=== PATIENT | female | born 1940 | race Asian ===

== ENCOUNTER 2017-04-04 15:23 | Inpatient (IN) | payer MEDICARE, OTHER ==
[~2017-04-04] VITALS: Ht 157.5 cm; Wt 57.6 kg
[2017-04-04] VITALS (8 sets, daily range): BP systolic 115–159; BP diastolic 59–83
--- NOTE | 2017-04-04 16:09 | Emergency Room Report ---
History of Present Illness General Chief Complaint: Abdominal Pain Source: Patient Present Illness HPI [id number] walk-in, sent from Dr Marino's office for generalized abd pain, generalized with dizziness for 2 weeks. Denies nausea/vomiting, fever/chills, urinary complaints ?abnormal labs. Dr Mckay says "elevated CA" marker 199 Denies other medical problems, medications Allergies: Coded Allergies: ASPIRIN (Verified Allergy, Unknown, 04/04/17) Patient History Past Medical History: none Past Surgical History: none Pertinent Family History: none Social History: Denies: smoking, alcohol use, drug use Now: No Immunizations: UTD Reviewed Nursing Documentation: PMH: Agreed, PSxH: Agreed Review of Systems All Other Systems: negative except mentioned in HPI Physical Exam Vital Signs Date Time Temp Pulse Resp B/P (MAP) Pulse Ox O2 Delivery O2 Flow Rate FiO2 04/04/17 15:51 98.1 78 16 184/77 97 Room Air Sp02 EP Interpretation: reviewed, normal General Appearance: normal inspection, well appearing, no apparent distress, alert Head: atraumatic ENT: normal ENT inspection, hearing grossly normal, normal voice Neck: normal inspection, full range of motion, supple, no bony tend Respiratory: normal inspection, lungs clear, normal breath sounds, no respiratory distress, no retraction, no wheezing Cardiovascular #1: regular rate, rhythm, no edema Gastrointestinal: normal inspection, normal bowel sounds, soft, no guarding, no hernia, other - Generalized ttp. No peritonitis. Genitourinary: no CVA tenderness Musculoskeletal: normal inspection, back normal, normal range of motion, Twyla' s Sign negative Neurologic: normal inspection, alert, oriented x3, responsive, aviation ordnance officer III-XII nml as tested, motor strength/tone normal, speech normal Psychiatric: normal inspection, judgement/insight normal, mood/affect normal Skin: normal inspection, normal color, no rash Medical Decision Making Diagnostic Impression: Primary Impression: Abdominal pain Qualified Codes: R10.84 - Generalized abdominal pain Additional Impression: Retrocecal appendicitis ER Course H&H stable, no leuks. Lipase slightly elevated CTAP shows retrocecal appy Abx given Blood Cx pending Patient stable in ED Endorsed to Dr Ding for med/surg admit 708pm Gen Surg consulted - pending callback Last Vital Signs Date Time Temp Pulse Resp B/P (MAP) Pulse Ox O2 Delivery O2 Flow Rate FiO2 04/04/17 15:51 98.1 78 16 184/77 97 Room Air Status: improved Disposition: ADMITTED INPATIENT Condition: Serious DANITA OCHOA M.D. Apr 04, 2017 16:09
[2017-04-04] MEDS ORDERED: Morphine Sulfate 2mg/ml Inj IVP ONE (16:15)
[2017-04-04 17:05] LABS: APPEARANCE,URINE CLEAR; KETONES,URINE NEGATIVE (NEGATIVE); LEUKOCYTE ESTERASE ,URINE NEGATIVE (NEGATIVE); NITRITE,URINE NEGATIVE (NEGATIVE); PH,URINE 5 (4.5-8.0); PROTEIN,URINE NEGATIVE (NEGATIVE); UROBILINOGEN,URINE NORMAL MG/DL (0.0-1.0)
[2017-04-04 17:09] LABS: ALANINE AMINOTRANSFERASE 18 U/L (3-33); ALBUMIN/GLOBULIN RATIO 2.2 (1.0-2.7); ANION GAP 14 (5-15); ASPARTATE AMINO TRANSFERASE 26 U/L (5-40); CALCIUM 9.6 mg/dL (8.6-10.2); CARBON DIOXIDE 24 mEQ/L (20-30); CHLORIDE 103 mEQ/L (98-107); CREATININE 0.8 mg/dL (0.5-0.9); HEMOLYSIS 7; LIPASE 73 U/L (< 60); POTASSIUM 4.3 mEQ/L (3.4-4.9); SODIUM 141 mEQ/L (135-145); TOTAL PROTEIN 8.1 g/dL (6.6-8.7); TROPONIN I < 0.30 ng/mL (<=0.30)
[2017-04-04 17:12] LABS: BASOPHILS % (AUTO) 0.3 % (0.0-2.0); EOSINOPHILS % (AUTO) 0.3 % (0.0-3.0); LYMPHOCYTES % (AUTO) 20.7 % (20.0-45.0); MEAN CORPUSCULAR HEMOGLOBIN 33.2 PG (27.0-31.0); MEAN CORPUSCULAR HGB CONC 35.2 G/DL (32.0-36.0); MEAN CORPUSCULAR VOLUME 94 FL (80-99); MEAN PLATELET VOLUME 10.5 FL (6.5-10.1); NEUTROPHILS % (AUTO) 77.8 % (45.0-75.0); PLATELET COUNT 181 K/UL (150-450); RED BLOOD COUNT 4.38 M/UL (4.20-5.40); RED CELL DISTRIBUTION WIDTH 12.1 % (11.6-14.8); WHITE BLOOD COUNT 7.2 K/UL (4.8-10.8)
[2017-04-04] MEDS ORDERED: cefOXitin Sod 1 GM in D5W 55 ML IVPB STA (19:03)
[2017-04-04] MEDS ORDERED: cefOXitin 1gm Inj ONE (19:27)
[2017-04-04] MEDS ORDERED: Morphine Sulfate 2mg/ml Inj IVP PRN (19:30)
[2017-04-04] MEDS ORDERED: Nitroglycerin Subl 0.4mg tab SL PRN (19:30)
[2017-04-04] MEDS ORDERED: Mylanta II UD 30ml ORAL PRN (19:30)
[2017-04-04] MEDS ORDERED: Bupivacaine w/Epi 0.25% 30ml Vial INJ ONE (20:09)
[2017-04-04] MEDS ORDERED: D5 1/2NS 1,000 ML IV SCH (20:30)
[2017-04-04] MEDS ORDERED: Propofol 200mg/20ml IV ONE (21:00)
[2017-04-04] MEDS ORDERED: LR 1000ml 1,000 ML IVLG SCH (21:00)
[2017-04-04] MEDS ORDERED: LR 1000ml ONE (21:00)
[2017-04-04] MEDS ORDERED: DiphenhydrAMINE 50mg/ml Inj IVP PRN (21:00)
[2017-04-04] MEDS ORDERED: Hydromorphone 0.5mg/0.5ml inj IVP PRN ×2 (21:00→22:45)
[2017-04-04] MEDS ORDERED: Succinylcholine 20mg/ml 10ml vial ONE (21:00)
[2017-04-04] MEDS ORDERED: Heparin 5000 units/ml inj SUBQ SCH (21:00)
[2017-04-04] MEDS ORDERED: Midazolam 2mg/2ml Inj IVP PRN (21:00)
[2017-04-04] MEDS ORDERED: fentaNYL 100 mcg/2 mL IV ONE (21:00)
[2017-04-04] MEDS ORDERED: NS Irrig 1000ml ONE (21:00)
[2017-04-04] MEDS ORDERED: Sterile Water Irrig 1000ml IRRIG ONE (21:00)
[2017-04-04] MEDS ORDERED: Midazolam 2mg/2ml Inj ONE (21:00)
[2017-04-04] MEDS ORDERED: Miralax 17gm pkt ORAL PRN (21:00)
[2017-04-04] MEDS ORDERED: Morphine Sulfate 10mg/ml Inj ONE (21:00)
--- NOTE | 2017-04-04 21:03 | Anethesia Preoperative Eval ---
Anesthesia Pre-op PMH/ROS General Date of Evaluation: Apr 04, 2017 Time of Evaluation: 21:10 Anesthesiologist: Hayley ASA Score: ASA 1 Mallampati Score Class I : Soft palate, uvula, fauces, pillars visible Class II: Soft palate, uvula, fauces visible Class III: Soft palate, base of uvula visible Class IV: Only hard plate visible Mallampati Classification: Class III Surgeon: Keara Diagnosis: Acute Appendicitis Surgical Procedure: Emergency lap appy Family History: no anesthesia problems Allergies: Coded Allergies: ASPIRIN (Verified Allergy, Unknown, 04/04/17) Medications: see eMAR Past Medical History Cardiovascular: Denies: HTN, CAD, DC, valve dz, arrhythmia, other Pulmonary: Denies: asthma, COPD, JERRICA, other Gastrointestinal/Genitourinary: Denies: GERD, CRI, ESRD, other Neurologic/Psychiatric: Denies: dementia, CVA, depression/anxiety, TIA, other Endocrine: Denies: DM, hypothyroidism, steroids, other HEENT: Denies: cataract (L), cataract (R), glaucoma, P[place]OT (L), PENOBSCOT (R), other Hematology/Immune: Denies: anemia, DVT, bleeding disorder, other Musculoskeletal/Integumentary: Denies: OA, RA, DJD, DDD, edema, other PMH Narrative: Denies significant PMH PSxH Narrative: No prior surgery Anesthesia Pre-op Phys. Exam Physician Exam Last Vital Signs Date Time Temp Pulse Resp B/P (MAP) Pulse Ox O2 Delivery O2 Flow Rate FiO2 04/04/17 20:36 97.1 75 16 159/68 97 Room Air Constitutional: NAD Neurologic: CN 2-12 intact Cardiovascular: RRR, no M/R/G Respiratory: CTA Gastrointestinal: S/NT/ND Airway Exam Mallampati Score: Class III MO: full ROM: full Teeth: intact Anesthesia Pre-op A/P Labs Hematology Test 04/04/17 15:35 White Blood Count 7.2 K/UL (4.8-10.8) Red Blood Count 4.38 M/UL (4.20-5.40) Hemoglobin 14.5 G/DL (12.0-16.0) Hematocrit 41.2 % (37.0-47.0) Mean Corpuscular Volume 94 FL (80-99) Mean Corpuscular Hemoglobin 33.2 PG (27.0-31.0) H Mean Corpuscular Hemoglobin Concent 35.2 G/DL (32.0-36.0) Red Cell Distribution Width 12.1 % (11.6-14.8) Platelet Count 181 K/UL (150-450) Mean Platelet Volume 10.5 FL (6.5-10.1) H Neutrophils (%) (Auto) 77.8 % (45.0-75.0) H Lymphocytes (%) (Auto) 20.7 % (20.0-45.0) Monocytes (%) (Auto) 1.0 % (1.0-10.0) Eosinophils (%) (Auto) 0.3 % (0.0-3.0) Basophils (%) (Auto) 0.3 % (0.0-2.0) Coagulation Test 04/04/17 15:35 Prothrombin Time 10.0 SEC (9.30-11.50) Prothromb Time International Ratio 1.0 (0.9-1.1) Chemistry Test 04/04/17 15:35 Sodium Level 141 mEQ/L (135-145) Potassium Level 4.3 mEQ/L (3.4-4.9) Chloride Level 103 mEQ/L (98-107) Carbon Dioxide Level 24 mEQ/L (20-30) Anion Gap 14 (5-15) Blood Urea Nitrogen 18 mg/dL (7-23) Creatinine 0.8 mg/dL (0.5-0.9) Estimat Glomerular Filtration Rate mL/min (>60) Glucose Level 120 mg/dL (74-106) H Calcium Level 9.6 mg/dL (8.6-10.2) Total Bilirubin 0.3 mg/dL (0.0-1.2) Aspartate Amino Transf (AST/SGOT) 26 U/L (5-40) Alanine Aminotransferase (ALT/SGPT) 18 U/L (3-33) Alkaline Phosphatase 89 U/L (35-104) Troponin I < 0.30 ng/mL (<=0.30) Total Protein 8.1 g/dL (6.6-8.7) Albumin 5.6 g/dL (3.5-5.2) H Globulin 2.5 g/dL Albumin/Globulin Ratio 2.2 (1.0-2.7) Lipase 73 U/L (< 60) H Risk Assessment & Plan Assessment: Otherwise healthy 76 yo female for emergency lap appy Plan: GETA, rapid sequence, cricoid pressure Status Change Before Surgery: No Pre-Antibiotics Drug: Patient received Ancef in ER Given Within 1 Hr of Incision: No TYLER QUIROZ M.D. Apr 04, 2017 21:03
--- NOTE | 2017-04-04 21:04 | Immediate Post-Op Evaluation ---
Immediate Post-Op Evalulation Immediate Post-Op Evalulation Procedure: Emergency lap appy Date of Evaluation: Apr 04, 2017 Time of Evaluation: 10:55 IV Fluids: 1000 Estimated Blood Loss: 20 Urinary Output: 400 Blood Pressure Systolic: 124 Blood Pressure Diastolic: 64 Pulse Rate: 99 Respiratory Rate: 13 Temperature (Fahrenheit): 97.6 Pain Score (1-10): 0 Nausea: No Vomiting: No Complications No complication Patient Status: awake, patent, extubated, none Hydration Status: adequate Drug: Patient received Ancef in the ER TYLER QUIROZ M.D. Apr 04, 2017 21:04
[2017-04-04] MEDS ORDERED: NS Irrig 1000ml IRRIG ONE (21:10)
--- NOTE | 2017-04-04 21:27 | Pre-Procedure Note/Attestation ---
Pre-Procedure Note/Attestation Complete Prior to Procedure Planned Procedure: not applicable Procedure Narrative: laparoscopic appendectomy, possible open appendectomy possible exploratorey laparotomy Indications for Procedure Pre-Operative Diagnosis: acute appendicitis Attestation I attest that I discussed the nature of the procedure; its benefits; risks and complications; and alternatives (and the risks and benefits of such alternatives ), prior to the procedure, with the patient (or the patient's legal community health program representative). I attest that, if there was a reasonable possibility of needing a blood transfusion, the patient (or the patient's legal community health program representative) was given the [facility] standardized written summary, pursuant to the [place] Blood Safety Act ([place] Health and Safety Code # 1645, as amended). I attest that I re-evaluated the patient just prior to the surgery and that there has been no change in the patient's H&P, except as documented below:none JACKI CARNES Apr 04, 2017 21:27
[2017-04-04] MEDS ORDERED: Piperacillin/Tazobactam 3.375 GM in NS 110 ML IVPB SCH (22:00)
--- NOTE | 2017-04-04 22:31 | Brief Operative Note ---
Immediate Post Operative Note Operative Note Pre-op Diagnosis: acute appendicitis Procedure: lalparoscopic appendectomy Post-op Diagnosis: same Surgeon: eliseo Anesthesiologist: law Anesthesia: general, local Specimen: yes Complications: none Condition: stable Fluids: 1000 Estimated Blood Loss: minimal Drains: none Implant(s) used?: No JACKI CARNES Apr 04, 2017 22:31
[2017-04-04] MEDS ORDERED: HYDROmorphone 1mg/ml Carpuject IVP PRN (22:45)
[2017-04-05] MEDS ORDERED: Zosyn 3.375gm inj ONE (00:15)
[2017-04-05] MEDS: D5 1/2NS w/KCl 20mEq 1,000 ML IV SCH ×2 (00:40→08:31)
[2017-04-05 04:05] VITALS: BP 106/59
[2017-04-05] MEDS: ceFAZolin sod 1 GM in D5W 55 ML IV SCH ×3 (05:15→16:03)
[2017-04-05 06:33] LABS: BASOPHILS % (AUTO) 0.6 % (0.0-2.0); EOSINOPHILS % (AUTO) 0.1 % (0.0-3.0); MEAN CORPUSCULAR HEMOGLOBIN 32.4 PG (27.0-31.0); MEAN CORPUSCULAR HGB CONC 33.3 G/DL (32.0-36.0); MEAN CORPUSCULAR VOLUME 97 FL (80-99); MEAN PLATELET VOLUME 9.5 FL (6.5-10.1); MONOCYTES % (AUTO) 4.5 % (1.0-10.0); NEUTROPHILS % (AUTO) 73.8 % (45.0-75.0); PLATELET COUNT 174 K/UL (150-450); RED BLOOD COUNT 3.83 M/UL (4.20-5.40); RED CELL DISTRIBUTION WIDTH 12.7 % (11.6-14.8); WHITE BLOOD COUNT 11.5 K/UL (4.8-10.8)
[2017-04-05 06:38] LABS: ALANINE AMINOTRANSFERASE 13 U/L (3-33); ALBUMIN/GLOBULIN RATIO 2.2 (1.0-2.7); AMYLASE 201 U/L (10-110); ANION GAP 11 (5-15); ASPARTATE AMINO TRANSFERASE 23 U/L (5-40); CALCIUM 8.8 mg/dL (8.6-10.2); CARBON DIOXIDE 26 mEQ/L (20-30); CHLORIDE 103 mEQ/L (98-107); HEMOLYSIS 6; LIPASE 32 U/L (< 60); SODIUM 140 mEQ/L (135-145); TOTAL PROTEIN 6.4 g/dL (6.6-8.7)
[2017-04-05 07:04] LABS: CREATININE 0.7 mg/dL (0.5-0.9)
--- NOTE | 2017-04-05 07:30 | History and Physical Report ---
DATE OF ADMISSION: 04/04/2017 REASON FOR ADMISSION: 1. Abdominal pain. 2. Acute appendicitis. Present History: This 76-year-old woman has been referred by Dr. Doyle's office for a history of generalized pain. She had some history of dizziness. No nausea, vomiting, fevers, or chills. The patient reportedly had an elevated CEA marker to 199, but the etiology is uncertain. Denies any other major medical problems. Past Medical History: She denies any major medical problems. Takes no medicines for same. PAST SURGICAL HISTORY: Denies. ALLERGIES: She is allergic to aspirin. Review Of Systems: Pulmonary: No history of asthma, bronchitis, emphysema, pneumonia, or tuberculosis. Cardiac: No history of chest pains, palpitations, or irregular heart beat. Gastrointestinal: No history of peptic ulcer disease, gastritis, reflux, hemorrhoids, pancreatitis, or jaundice. Genitourinary: No dysuria or hematuria. Gynecologic: She is a 3, para 1, AB 2. Last menstrual period was 20 years ago. PHYSICAL EXAMINATION: General: Reveals a well-developed, pleasant Romansh woman, who speaks no [place]ican, interview was conducted with a customer experience professional. Vital Signs: Her temperature is 96.1, pulse 76, respirations 16, and blood pressure is 184/77. HEENT: Normocephalic. The sclerae are not icteric. Pupils are round and reactive to light. Throat is clear. NECK: Supple. LUNGS: Clear bilaterally. HEART: Normal sinus rhythm. Abdomen: Soft. There is tenderness to deep palpation in the right lower quadrant at McBurney's point with a small amount of guarding. The abdomen appears to be benign. GENITALIA: Normal female. EXTREMITIES: No clubbing, cyanosis, or edema. Laboratory And Diagnostic Data: Show a white blood count of 7.2, hemoglobin of 14.5, hematocrit 41.2, and platelet count is 181,000. Chemistry is sodium 141, potassium 4.3, chloride 103, bicarbonate 24, BUN 18, and glucose is 120. Total bilirubin 0.3. AST of 26, ALT of 18, and alkaline phosphatase 89. Total protein 8.1 and albumin 5.6. Lipase is 73. Preliminary x-ray report from radiologist, Dr. Charles, showed probably acute retrocecal appendicitis with prominent wall in size upwards of 7 mm. No free fluid or abscess noted. Impression and plan: Abdominal pain, probable acute appendicitis. I discussed the diagnosis with the patient and her daughter with the customer experience professional present. The tentative diagnosis of acute appendicitis was made, the need for urgent surgical intervention laparoscopic versus open, possibility of need to convert to a laparotomy discussed in detail. Possible findings including acute appendicitis or not discussed in detail, in particular, with the history of elevated CEA, we will pay special attention to surveillance of the entire abdomen to see if there is any evidence of any neoplastic process in addition to the appendicitis. Kalia Joshi M.D. DR: AISHA JOB#: [id number] CC: Hoang Doyle MD; Fax#: [phone] Shadi, M.D. ; Fax#: [phone]
[2017-04-05] MEDS ORDERED: LYRICA75 M1 ORAL (07:32)
[2017-04-05] MEDS ORDERED: NAMENDA5 MG ORAL (07:32)
[2017-04-05] MEDS ORDERED: CELEBREX200 MG ORAL (07:32)
[2017-04-05] MEDS ORDERED: ATORVASTATIN CA10 MG ORAL (07:32)
[2017-04-05 08:00] VITALS: BP 133/62
--- NOTE | 2017-04-05 08:51 | Diagnostic Imaging Report ---
Clinical Indication: Abdominal pain Technique: Patient given oral contrast. IV administration nonionic contrast. Venous phase spiral acquisition obtained through the abdomen and pelvis. Multiplanar reconstructions were generated. Total dose length product 604 mGycm. CTDIvol(s) 11 mGy. Dose reduction achieved using automated exposure control Comparison: None Findings: The appendix is upper limits of normal in caliber or borderline enlarged, measuring 6-8 mm in diameter. There is no periappendiceal inflammation demonstrated, however. No evidence of diverticulosis or diverticulitis. No small bowel distention or small bowel wall thickening. The distal esophagus, stomach, duodenum are unremarkable. No free or loculated intraperitoneal air or fluid is evident. The liver, gallbladder, bile ducts, pancreas, spleen, adrenals, left kidney are unremarkable. The right kidney demonstrates 3.3 cm interpolar region cyst. No pelvic mass or adenopathy. Varicosities are seen adjacent to the uterus and bilateral ovaries, and both ovarian veins are dilated. No mesenteric or retroperitoneal mass or adenopathy. The included lung bases demonstrate considerable pleural calcification and thickening on the left. There is posterior dependent atelectasis and generalized mild chronic appearing interstitial prominence. Heart is mildly enlarged. Impression: Prominent appendix, possibly representing very early acute appendicitis. 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 Correlate with any history that may be suggestive of pelvic congestion syndrome extensive pleural calcification in the left lung base. Correlate with any history of the stenosis exposure or prior tuberculosis Incidental finding of right renal cyst Mild cardiomegaly This agrees with the preliminary interpretation provided overnight by Dr. Charles The CT scanner at [facility] is accredited by the [employer] and the scans are performed using protocols designed to limit radiation exposure to as low as reasonably achievable to attain images of sufficient resolution adequate for diagnostic evaluation.
[2017-04-05] MEDS: Pantoprazole Inj IVP SCH (09:36)
[2017-04-05] MEDS: Piperacillin/Tazobactam 3.375 GM in NS 110 ML IVPB SCH ×2 (10:02→18:58)
[2017-04-05 12:00] VITALS: BP 132/69
--- NOTE | 2017-04-05 12:15 | Operative Note - Dictated ---
DATE OF OPERATION: 04/04/2017 SURGEON: Kalia Joshi M.D. ANESTHESIOLOGIST: Dante Hardy M.D. PREOPERATIVE DIAGNOSIS: Acute appendicitis. POSTOPERATIVE DIAGNOSIS: Acute appendicitis. PROCEDURE PERFORMED: Laparoscopic appendectomy. INDICATIONS: This is a very pleasant 76-year-old Latvian woman, seen at the request of emergency department. The patient had presented with a history of abdominal pain, questionable elevated CEA titers. The patient had undergone a CT scan of the abdomen. It was read by the in-house radiologists as showing probable early acute retrocecal appendicitis with prominent wall and size upwards of normal. No abscess or free fluid was noted. I was contacted to see the patient for the same. Through a single ending machine operator and her daughter, I discussed the tentative diagnoses, indications, procedures, benefits, complications, and planned to start laparoscopically, possible need to convert to an open procedure, open appendectomy or even an open laparotomy. Depending on the findings as the patient had been previously diagnosed as having elevated CEA titers and, as such, I explained that I would very carefully look around to see if there is any evidence of any neoplastic process going on and biopsy if necessary. The patient and family understand and agree to proceed. OPERATIVE FINDINGS: Upon entering the abdomen, there was no evidence of any malignancy. The ascending, descending, and transverse colon, all appeared normal. Both right and lower lobes showed no evidence of any masses or lesions. The stomach was unremarkable. The small bowel was unremarkable. The appendix was retrocecal, but was not grossly inflamed, appeared to be normal size and caliber with no significant induration, was removed in the following manner. PROCEDURE IN DETAIL: The patient was identified in the preoperative holding area and brought into the operating room just under general anesthesia endotracheal intubation. Barakat catheter was placed. The abdomen was prepped with Betadine and draped in a sterile manner. Time-out was performed confirming the patient's position, procedure, anesthesia, antibiotic, and allergy status. An infraumbilical incision was made through which we passed a Veress needle, checked with irrigation, aspiration, water drip test, connected to a CO2 insufflator, inflated to 15 mmHg taking 4 liters to achieve this. The Veress needle was removed. The aperture was enlarged. A 5 mm trocar was passed through the abdominal cavity, through which we passed a 30-degree laparoscope. The area immediately subjacent carefully examined to make sure there was no other inadvertent bowel or blood vessel injury, none seen. The abdomen was then very carefully murphy-scoped looking at all four quadrants and with again no evidence of any occult neoplastic process. A second 5 mm trocar was placed in the right upper quadrant under laparoscopic vision as was a 10/12 mm trocar was placed in the suprapubic area under direct vision. With this placed on the right lower quadrant, the cecum was carefully mobilized. The appendix was easily identified and grasped with a grasper. It was thought to be free in the retrocecal area. It was traced down to its junction with the cecum. Window was carefully created and the base of the mesoappendix through which was passed a YOLETTE stapler across the base of the appendix after making sure the appendix was completely inside the stapler outlines, the stapler was fired. A second vascular stapler load then was passed across the mesoappendix and fired. The appendix was then placed in an Endopouch bag and sent to pathology for examination. At this point, the right lower quadrant was copiously irrigated with a liter of warm normal saline and very carefully checked to make sure there was no inadvertent bowel or blood vessel injury. The staple lines were carefully examined. There was no active bleeding. Once again, the abdomen was murphy-scoped and then the trocars were removed under laparoscopic vision making sure there was no bleeding from the sites and the pneumoperitoneum released. The suprapubic incision was closed with #0 Vicryl in the fascia and all the incisions were closed with 4-0 Vicryl on the skin. The wounds were infiltrated with a total 20 mL of 0.25% Marcaine with epinephrine and covered with Steri-Strips and Tegaderm and 2 x 2. Blood loss for the entire procedure was less than 10 mL. The patient tolerated the procedure well, discharged to recovery room, and extubated in stable condition. Kalia Joshi M.D. DR: Juani JOB#: [id number] CC: Kalia Joshi M.D.; Fax#: [phone] Shadi, M.D. ; Fax#: [phone] Doyle MD; Fax#: [phone] [facility] MED[facility] CENTERThierry
--- NOTE | 2017-04-05 13:26 | GI Initial Consult Note ---
Radha Limon N.P. 04/05/17 1326: History of Present Illness General Date patient seen: Apr 05, 2017 Time patient seen: 12:00 Reason for Hospitalization: Abdominal Pain Referring physician: FELICIA GARCIA Reason for Consultation: ABDOMINAL PAIN, ELEVATED CEA Present Illness HPI [id number] walk-in, sent from Dr Doyle's office for generalized abd pain, generalized with dizziness for 2 weeks. Denies nausea/vomiting, fever/chills, urinary complaints ?abnormal labs. Dr Mckay says "elevated CA" marker 199 Denies other medical problems, medications GI Consult. HPI as noted above. GI consulted for abdominal pain. Patient seen on floor, awake A&Ox4 NAD with no active s/sx of N/V/D. Patient is no s/p lap appy currently on CLD. Per patient family, the patient recently had a colonoscopy and upper endoscopy at [facility] approximately 2 months ago where they found the patient positive for H. Pylori. She presents today with leukocytosis and elevated CEA >> the patient is currently being seen by Dr. Hoang Doyle as an outpatient. Lipase unremarkable. Home Meds Reported Medications Pregabalin* (LYRICA*) 75 Mg Capsule, 75 MG ORAL DAILY, CAP 04/05/17 Celecoxib* (CELEBREX*) 200 Mg Capsule, 200 MG ORAL DAILY, CAP 04/05/17 Atorvastatin Calcium* (LIPITOR*) 10 Mg Tablet, 10 MG ORAL BEDTIME, TAB 04/05/17 Memantine Hcl* (NAMENDA*) 5 Mg Tablet, 7 MG ORAL DAILY, TAB 04/05/17 Med list reviewed/reconciled: Yes Allergies: Coded Allergies: ACETAMINOPHEN (Unverified Allergy, Intermediate, 04/05/17) ASPIRIN (Verified Allergy, Unknown, 04/04/17) Patient History Limited by: language barrier History Provided By: Family Member, Medical Record PMH Narrative Past Medical History: none Past Surgical History: none Pertinent Family History: none Social History: Denies: smoking, alcohol use, drug use Now: No Immunizations: UTD Reviewed Nursing Documentation: PMH: Agreed, PSxH: Agreed Social History: Denies: smoking, alcohol use, drug use, other Review of Systems All Other Systems: negative except mentioned in HPI Physical Exam Vital Signs Date Time Temp Pulse Resp B/P (MAP) Pulse Ox O2 Delivery O2 Flow Rate FiO2 9/18/17 15:51 98.1 78 16 184/77 97 Room Air 04/04/17 22:37 6.0 Sp02 EP Interpretation: reviewed Labs Laboratory Tests Test 04/04/17 15:35 04/05/17 05:50 White Blood Count 7.2 K/UL (4.8-10.8) 11.5 K/UL (4.8-10.8) #H Red Blood Count 4.38 M/UL (4.20-5.40) 3.83 M/UL (4.20-5.40) L Hemoglobin 14.5 G/DL (12.0-16.0) 12.4 G/DL (12.0-16.0) Hematocrit 41.2 % (37.0-47.0) 37.3 % (37.0-47.0) Mean Corpuscular Volume 94 FL (80-99) 97 FL (80-99) Mean Corpuscular Hemoglobin 33.2 PG (27.0-31.0) H 32.4 PG (27.0-31.0) H Mean Corpuscular Hemoglobin Concent 35.2 G/DL (32.0-36.0) 33.3 G/DL (32.0-36.0) Red Cell Distribution Width 12.1 % (11.6-14.8) 12.7 % (11.6-14.8) Platelet Count 181 K/UL (150-450) 174 K/UL (150-450) Mean Platelet Volume 10.5 FL (6.5-10.1) H 9.5 FL (6.5-10.1) Neutrophils (%) (Auto) 77.8 % (45.0-75.0) H 73.8 % (45.0-75.0) Lymphocytes (%) (Auto) 20.7 % (20.0-45.0) 21.0 % (20.0-45.0) Monocytes (%) (Auto) 1.0 % (1.0-10.0) 4.5 % (1.0-10.0) Eosinophils (%) (Auto) 0.3 % (0.0-3.0) 0.1 % (0.0-3.0) Basophils (%) (Auto) 0.3 % (0.0-2.0) 0.6 % (0.0-2.0) Prothrombin Time 10.0 SEC (9.30-11.50) Prothromb Time International Ratio 1.0 (0.9-1.1) Urine Color Pale yellow Urine Appearance Clear Urine pH 5 (4.5-8.0) Urine Specific [place] 1.010 (1.005-1.035) Urine Protein Negative (NEGATIVE) Urine Glucose (UA) Negative (NEGATIVE) Urine Ketones Negative (NEGATIVE) Urine Occult Blood Negative (NEGATIVE) Urine Nitrite Negative (NEGATIVE) Urine Bilirubin Negative (NEGATIVE) Urine Urobilinogen Normal MG/DL (0.0-1.0) Urine Leukocyte Esterase Negative (NEGATIVE) Sodium Level 141 mEQ/L (135-145) 140 mEQ/L (135-145) Potassium Level 4.3 mEQ/L (3.4-4.9) 4.0 mEQ/L (3.4-4.9) Chloride Level 103 mEQ/L (98-107) 103 mEQ/L (98-107) Carbon Dioxide Level 24 mEQ/L (20-30) 26 mEQ/L (20-30) Anion Gap 14 (5-15) 11 (5-15) Blood Urea Nitrogen 18 mg/dL (7-23) 11 mg/dL (7-23) Creatinine 0.8 mg/dL (0.5-0.9) 0.7 mg/dL (0.5-0.9) Estimat Glomerular Filtration Rate mL/min (>60) mL/min (>60) Glucose Level 120 mg/dL (74-106) H 112 mg/dL (74-106) H Calcium Level 9.6 mg/dL (8.6-10.2) 8.8 mg/dL (8.6-10.2) Total Bilirubin 0.3 mg/dL (0.0-1.2) 0.4 mg/dL (0.0-1.2) Aspartate Amino Transf (AST/SGOT) 26 U/L (5-40) 23 U/L (5-40) Alanine Aminotransferase (ALT/SGPT) 18 U/L (3-33) 13 U/L (3-33) Alkaline Phosphatase 89 U/L (35-104) 71 U/L (35-104) Troponin I < 0.30 ng/mL (<=0.30) Total Protein 8.1 g/dL (6.6-8.7) 6.4 g/dL (6.6-8.7) L Albumin 5.6 g/dL (3.5-5.2) H 4.4 g/dL (3.5-5.2) Globulin 2.5 g/dL 2.0 g/dL Albumin/Globulin Ratio 2.2 (1.0-2.7) 2.2 (1.0-2.7) Lipase 73 U/L (< 60) H 32 U/L (< 60) Activated Partial Thromboplast Time 25 SEC (23-33) Amylase Level 201 U/L (10-110) H General Appearance: well appearing, no apparent distress, alert Head: normocephalic EENT: normal ENT inspection Neck: full range of motion, supple Respiratory: lungs clear, normal breath sounds, no rhonchi Gastrointestinal: normal inspection, non tender, soft Neurologic: alert, oriented x3, responsive Psychiatric: normal inspection, judgement/insight normal Skin: normal inspection, normal color, no rash, warm/dry Lymphatic: normal inspection, no adenopathy Current Medications Current Medications Medications (Trade) Dose Ordered Sig/Rhona Route PRN Reason Start Time Stop Time Status Last Admin Dose Admin Acetaminophen (Tylenol) 650 mg Q4H PRN ORAL T>100.5 04/04/17 19:30 05/04/17 19:29 Al Hydroxide/Mg Hydroxide (Mylanta II) 30 ml Q6H PRN ORAL dyspepsia 04/04/17 19:30 05/04/17 19:29 Cefazolin Sodium 1 gm/Dextrose 55 ml @ 110 mls/hr EVERY 8 HOURS IV 04/05/17 06:00 04/05/17 14:29 04/05/17 05:15 Dextrose (Dextrose 50%) STAT PRN IV Hypoglycemia 04/04/17 19:30 05/04/17 19:29 Dextrose/ Electrolytes 1,000 ml @ 100 mls/hr Q10H IV 04/04/17 22:31 05/04/17 22:30 04/05/17 00:40 Diphenhydramine HCl (Benadryl) 25 mg Q6H PRN ORAL Itching/Pruritis 04/04/17 19:30 05/04/17 19:29 Heparin Sodium (Porcine) (Heparin 5000 units/ml) 5,000 units EVERY 12 HOURS SUBQ 04/05/17 21:00 05/05/17 20:59 Hydromorphone HCl (Dilaudid) 0.5 mg Q3H PRN IVP Pain Score 1-3 04/04/17 22:45 04/11/17 22:44 Hydromorphone HCl (Dilaudid) 1 mg Q3H PRN IVP pain score 4-6 04/04/17 22:45 04/11/17 22:44 Hydromorphone HCl (Dilaudid) 2 mg Q3H PRN IVP pain score 7-10 04/04/17 22:45 04/11/17 22:44 Nitroglycerin (Ntg) 0.4 mg Q5M X 3 DOSES PRN SL Prn Chest Pain 04/04/17 19:30 05/04/17 19:29 Ondansetron HCl (Zofran) 4 mg Q6H PRN IVP Nausea & Vomiting 04/04/17 22:45 05/04/17 22:44 Pantoprazole (Protonix) 40 mg DAILY IVP 04/05/17 09:00 05/05/17 08:59 04/05/17 09:36 Piperacillin Sod/ Tazobactam Sod 3.375 gm/Sodium Chloride 110 ml @ 27.5 mls/hr Q8H IVPB 04/05/17 09:00 04/12/17 08:59 04/05/17 10:02 Polyethylene Glycol (Miralax) 17 gm HSPRN PRN ORAL Constipation 04/04/17 21:00 05/04/17 20:59 Temazepam (Restoril) 15 mg HSPRN PRN ORAL Insomnia 04/04/17 21:00 04/11/17 20:59 GI: Plan Problems: (1) Elevated CEA (2) Abdominal pain (3) Retrocecal appendicitis Plan s/p EGD/colonoscopy x 2 months @ [facility] >> per patient, H. Pylori positive >> unable to tolerate abx treatment elevated CEA, 199 >> pt being followed by Dr. Hoang Doyle as outpatient s/p lap appy supportive care at this time fu surgical recs CLD, adv as tolerated pain mgmt ppi fu labs fu with outpatient GI provider for HP tx Discussed with Dr. Walsh. Thank you for referring this patient, we will follow. JULIA WALSH 04/06/17 1032: History of Present Illness General Reason for Hospitalization: Abdominal Pain Present Illness Home Meds Reported Medications Pregabalin* (LYRICA*) 75 Mg Capsule, 75 MG ORAL DAILY, CAP 04/05/17 Celecoxib* (CELEBREX*) 200 Mg Capsule, 200 MG ORAL DAILY, CAP 04/05/17 Atorvastatin Calcium* (LIPITOR*) 10 Mg Tablet, 10 MG ORAL BEDTIME, TAB 04/05/17 Memantine Hcl* (NAMENDA*) 5 Mg Tablet, 7 MG ORAL DAILY, TAB 04/05/17 Allergies: Coded Allergies: ACETAMINOPHEN (Unverified Allergy, Intermediate, 04/05/17) ASPIRIN (Verified Allergy, Unknown, 04/04/17) GI: Plan Plan The patient was seen and examined at bedside and all new and available data was reviewed in the patients chart. I agree with the above findings, impression and plan. (Patient seen earlier today. Signature stamp does not reflect patient encounter time.). -Radha Dow MD, N.P. Apr 05, 2017 13:26 JULIA WALSH Apr 06, 2017 10:32
--- NOTE | 2017-04-05 14:17 | General Progress Note ---
Progress Note Progress Note Surgery: POD #1 s/p lap appy. noted to have pelvic venous congestion on CT. doing well. no acute events. some incisional pain. no n/v/f/c. ambulatory. had BM this afternoon. afebrile, HD stable, VSS, labs reviewed. -diet as tolerated -ambulate and out of bed -discharge planning for tomorrow from surgical standpoint -am labs Noel Osborne Apr 05, 2017 14:17
[2017-04-05] MEDS ORDERED: Norco 5mg/325mg tab ORAL PRN (14:30)
[2017-04-05] MEDS ORDERED: traMADol 50mg tab ORAL PRN (14:45)
[2017-04-05 15:47] VITALS: BP 133/69
--- NOTE | 2017-04-05 16:21 | Consultation ---
History of Present Illness General Date patient seen: Apr 05, 2017 Chief Complaint: Abdominal Pain Referring physician: FELICIA GARCIA Reason for Consultation: inpatient management Present Illness HPI 76 year old female with hx of some dementia who is being seen by an oncologist for abnormal labs, was sent to ER for nausea/ vomiting and abdominal pain. Pt was found to have appendicitis and underwent appendectomy already. Allergies: Coded Allergies: ACEMETACIN (Verified Allergy, Intermediate, unknown, 04/05/17) ASPIRIN (Verified Allergy, Unknown, 04/04/17) Medication History Scheduled Atorvastatin Calcium* (Lipitor*), 10 MG ORAL BEDTIME, (Reported) Celecoxib* (Celebrex*), 200 MG ORAL DAILY, (Reported) Memantine Hcl* (Namenda*), 7 MG ORAL DAILY, (Reported) Pregabalin* (Lyrica*), 75 MG ORAL DAILY, (Reported) Patient History Healthcare decision maker Resuscitation status Full Code Advanced Directive on File Past Medical/Surgical History Past Medical/Surgical History: (1) Varicose vein of leg (2) Elevated CEA Review of Systems Gastrointestinal: Reports: abdominal pain, nausea, vomiting All Other Systems: negative except mentioned in HPI Physical Exam General Appearance: WD/WN Lines, tubes and drains: peripheral HEENT: normocephalic, atraumatic Neck: non-tender, normal alignment, limited range of motion Respiratory/Chest: lungs clear Breasts: no masses Cardiovascular/Chest: normal peripheral pulses, regular rhythm Genitourinary/Rectal: normal genital exam, normal rectal exam Extremities: normal range of motion, normal inspection Last 24 Hour Vital Signs Date Time Temp Pulse Resp B/P (MAP) Pulse Ox O2 Delivery O2 Flow Rate FiO2 04/05/17 15:47 98.2 66 19 133/69 95 Room Air 04/05/17 12:00 97.5 63 20 132/69 94 Room Air 04/05/17 08:00 98.2 62 20 133/62 95 Room Air 04/05/17 04:05 97.3 71 20 106/59 94 Room Air 71 04/04/17 23:20 97.9 87 20 119/59 99 Nasal Cannula 3.0 04/04/17 23:05 89 12 125/60 99 Nasal Cannula 3.0 04/04/17 22:55 92 24 124/64 99 Nasal Cannula 3.0 04/04/17 22:47 93 16 115/62 99 Nasal Cannula 3.0 04/04/17 22:42 94 17 124/64 99 Simple Mask 6.0 04/04/17 22:40 99 13 04/04/17 22:37 97.6 100 17 131/64 99 Simple Mask 6.0 04/04/17 21:10 97.1 85 18 140/83 98 Room Air 04/04/17 21:00 97.1 85 18 140/83 98 Room Air 04/04/17 20:36 97.1 75 16 159/68 97 Room Air 04/04/17 17:21 98.0 Intake and Output 04/05/17 04/06/17 19:00 07:00 Intake Total 100 ml Balance 100 ml IV Total 100 ml Laboratory Tests Test 04/05/17 05:50 White Blood Count 11.5 K/UL (4.8-10.8) #H Red Blood Count 3.83 M/UL (4.20-5.40) L Hemoglobin 12.4 G/DL (12.0-16.0) Hematocrit 37.3 % (37.0-47.0) Mean Corpuscular Volume 97 FL (80-99) Mean Corpuscular Hemoglobin 32.4 PG (27.0-31.0) H Mean Corpuscular Hemoglobin Concent 33.3 G/DL (32.0-36.0) Red Cell Distribution Width 12.7 % (11.6-14.8) Platelet Count 174 K/UL (150-450) Mean Platelet Volume 9.5 FL (6.5-10.1) Neutrophils (%) (Auto) 73.8 % (45.0-75.0) Lymphocytes (%) (Auto) 21.0 % (20.0-45.0) Monocytes (%) (Auto) 4.5 % (1.0-10.0) Eosinophils (%) (Auto) 0.1 % (0.0-3.0) Basophils (%) (Auto) 0.6 % (0.0-2.0) Activated Partial Thromboplast Time 25 SEC (23-33) Sodium Level 140 mEQ/L (135-145) Potassium Level 4.0 mEQ/L (3.4-4.9) Chloride Level 103 mEQ/L (98-107) Carbon Dioxide Level 26 mEQ/L (20-30) Anion Gap 11 (5-15) Blood Urea Nitrogen 11 mg/dL (7-23) Creatinine 0.7 mg/dL (0.5-0.9) Estimat Glomerular Filtration Rate mL/min (>60) Glucose Level 112 mg/dL (74-106) H Calcium Level 8.8 mg/dL (8.6-10.2) Total Bilirubin 0.4 mg/dL (0.0-1.2) Aspartate Amino Transf (AST/SGOT) 23 U/L (5-40) Alanine Aminotransferase (ALT/SGPT) 13 U/L (3-33) Alkaline Phosphatase 71 U/L (35-104) Total Protein 6.4 g/dL (6.6-8.7) L Albumin 4.4 g/dL (3.5-5.2) Globulin 2.0 g/dL Albumin/Globulin Ratio 2.2 (1.0-2.7) Amylase Level 201 U/L (10-110) H Lipase 32 U/L (< 60) Height (Feet): 5 Height (Inches): 2.00 Weight (Pounds): 127 Medications Current Medications Medications (Trade) Dose Ordered Sig/Rhona Route PRN Reason Start Time Stop Time Status Last Admin Dose Admin Acetaminophen (Tylenol) 650 mg Q4H PRN ORAL T>100.5 04/04/17 19:30 05/04/17 19:29 Acetaminophen/ Hydrocodone Bitart ([place] 5/325) 2 tab Q4H PRN ORAL Moderate Pain (Pain Scale 4-6) 04/05/17 14:30 04/12/17 14:29 Al Hydroxide/Mg Hydroxide (Mylanta II) 30 ml Q6H PRN ORAL dyspepsia 04/04/17 19:30 05/04/17 19:29 Dextrose (Dextrose 50%) STAT PRN IV Hypoglycemia 04/04/17 19:30 05/04/17 19:29 Diphenhydramine HCl (Benadryl) 25 mg Q6H PRN ORAL Itching/Pruritis 04/04/17 19:30 05/04/17 19:29 Heparin Sodium (Porcine) (Heparin 5000 units/ml) 5,000 units EVERY 12 HOURS SUBQ 04/05/17 21:00 05/05/17 20:59 Hydromorphone HCl (Dilaudid) 0.5 mg Q3H PRN IVP Pain Score 1-3 04/04/17 22:45 04/11/17 22:44 Hydromorphone HCl (Dilaudid) 1 mg Q3H PRN IVP pain score 4-6 04/04/17 22:45 04/11/17 22:44 Hydromorphone HCl (Dilaudid) 2 mg Q3H PRN IVP pain score 7-10 04/04/17 22:45 04/11/17 22:44 Nitroglycerin (Ntg) 0.4 mg Q5M X 3 DOSES PRN SL Prn Chest Pain 04/04/17 19:30 05/04/17 19:29 Ondansetron HCl (Zofran) 4 mg Q6H PRN IVP Nausea & Vomiting 04/04/17 22:45 05/04/17 22:44 Pantoprazole (Protonix) 40 mg DAILY IVP 04/05/17 09:00 05/05/17 08:59 04/05/17 09:36 Piperacillin Sod/ Tazobactam Sod 3.375 gm/Sodium Chloride 110 ml @ 27.5 mls/hr Q8H IVPB 04/05/17 09:00 04/12/17 08:59 04/05/17 10:02 Polyethylene Glycol (Miralax) 17 gm HSPRN PRN ORAL Constipation 04/04/17 21:00 05/04/17 20:59 Temazepam (Restoril) 15 mg HSPRN PRN ORAL Insomnia 04/04/17 21:00 04/11/17 20:59 Tramadol HCl (Ultram) 50 mg Q6H PRN ORAL Mild Pain (Pain Scale 1-3) 04/05/17 14:45 04/12/17 14:44 Assessment/Plan Problem List: (1) Retrocecal appendicitis ICD Codes: K36 - Other appendicitis SNOMED: 01653428 (2) Varicose vein of leg ICD Codes: I83.90 - Asymptomatic varicose veins of unspecified lower extremity SNOMED: 42943990 (3) Elevated CEA ICD Codes: R97.0 - Elevated carcinoembryonic antigen [CEA] SNOMED: 34085442, 072660263 Assessment/Plan start diet when ok with surgeon IV fluids check electrolytes check CEA again POLA WILSON Apr 05, 2017 16:21
--- NOTE | 2017-04-05 18:37 | History & Physical ---
History and Physical History & Physicial Dictated for Int Med-Dr Ding no. [id number]. ALBERTO HARPER Apr 05, 2017 18:36
[2017-04-05 20:00] VITALS: BP 146/73
[2017-04-05] MEDS: Memantine 5 MG TAB ORAL SCH (20:48)
[2017-04-05] MEDS: Heparin 5000 units/ml inj SUBQ SCH (20:55)
--- NOTE | 2017-04-05 23:19 | Consultation ---
Consult Note Consult Note ID DIC # [id number] JAVIER QUEZADA M.D. Apr 05, 2017 23:19
[2017-04-06] VITALS: BP 131/59
[2017-04-06 04:00] VITALS: BP 131/69
[2017-04-06 06:47] LABS: BASOPHILS % (AUTO) 0.7 % (0.0-2.0); EOSINOPHILS % (AUTO) 1.2 % (0.0-3.0); LYMPHOCYTES % (AUTO) 40.4 % (20.0-45.0); MEAN CORPUSCULAR HEMOGLOBIN 32.1 PG (27.0-31.0); MEAN CORPUSCULAR HGB CONC 32.7 G/DL (32.0-36.0); MEAN CORPUSCULAR VOLUME 98 FL (80-99); MEAN PLATELET VOLUME 9.4 FL (6.5-10.1); MONOCYTES % (AUTO) 6.9 % (1.0-10.0); NEUTROPHILS % (AUTO) 50.9 % (45.0-75.0); PLATELET COUNT 176 K/UL (150-450); RED BLOOD COUNT 3.96 M/UL (4.20-5.40); RED CELL DISTRIBUTION WIDTH 12.2 % (11.6-14.8); WHITE BLOOD COUNT 7.1 K/UL (4.8-10.8)
--- NOTE | 2017-04-06 07:15 | Consultation ---
DATE OF CONSULTATION: 04/05/2017 INFECTIOUS DISEASES CONSULTATION CONSULTING PHYSICIAN: Jama Wallace M.D. REQUESTING PHYSICIAN: 1. Kay Laird M.D. 2. Tee Ding M.D. Reason For Consultation: Evaluation of the patient for appendicitis and antibiotic management. History Of Present Illness: The patient is a 76-year-old female, who was admitted to this medical center for abdominal pain, was found to have acute appendicitis, underwent appendectomy. There was no signs of perforation. The patient was feeling better. The patient has been started on IV Zosyn. Infectious Disease consultation has been requested for further evaluation of the patient and antibiotic management. Past Medical History: Significant for CEA marker with unknown etiology and history of hyperlipidemia. MEDICATION: IV Zosyn. ALLERGIES: Acetaminophen and aspirin. SOCIAL HISTORY: The patient lives at home. FAMILY HISTORY: Noncontributory. Review Of Systems: HEENT: No recent change in vision or hearing. Pulmonary: No cough or shortness of breath. Cardiovascular: No chest pain or palpitations. Gastrointestinal/Abdomen: As mentioned above. Genitourinary: No dysuria. Neurologic: No history of seizure. PHYSICAL EXAMINATION: Vital Signs: Temperature 97 degrees, blood pressure 142/72, pulse 86, and respiratory rate 18. HEENT: No pale conjunctivae. No icterus. NECK: No lymphadenopathy. CHEST: Clear. HEART: S1 and S2. Abdomen: Soft. The patient has three incision sites with abdomen color reducing, mildly tender. NEUROLOGIC: Awake and alert. Laboratory Data: White blood cells 11.5, hemoglobin 12.4, and platelets 174,000. UA unremarkable. BUN and creatinine unremarkable. Liver function tests unremarkable. CT scan of the abdomen shows mild appendicitis. ASSESSMENT: The patient is a 76-year-old female with: 1. Mild abdominal pain, status post appendectomy for mild appendicitis without perforation. 2. Hyperlipidemia. 3. History of elevated CEA monitor. PLAN: 1. We will discontinue IV Zosyn. There is no evidence of perforation and the patient already has appendectomy. 2. We will monitor leukocytosis and CBC as this appears to be a postoperative finding. 3. Monitor BMP. 4. We will follow surgical recommendation. Thank you, Dr. Laird,for allowing me to participate in the care of this patient. I will follow the patient with you during this hospitalization. Jama Wallace M.D. DR: LAURA JOB#: [id number] CC:
[2017-04-06 07:16] LABS: ANION GAP 9 (5-15); CALCIUM 9.1 mg/dL (8.6-10.2); CARBON DIOXIDE 29 mEQ/L (20-30); CHLORIDE 103 mEQ/L (98-107); CREATININE 0.8 mg/dL (0.5-0.9); HEMOLYSIS 2; POTASSIUM 3.6 mEQ/L (3.4-4.9); SODIUM 141 mEQ/L (135-145)
[2017-04-06 08:00] VITALS: BP 135/78
--- NOTE | 2017-04-06 08:00 | History and Physical Report ---
DATE OF ADMISSION: 04/04/[address] Ding Chief Complaint: The patient is a 76-year-old female, who presents with complaint of abnormal laboratories. History Of Present Illness: The patient was evaluated by Dr. Hoang Doyle yesterday, 04/04/2017. The patient was found to have elevated CEA. The patient also had abdominal pain. The patient was referred to [facility] for elevated CEA to rule out pancreatic cancer. Upon arrival at [facility], a CAT scan of the emergency room revealed prominent appendix consistent with acute appendicitis. The patient is admitted for elevated CEA and acute appendicitis. PAST MEDICAL HISTORY: 1. Significant for hypercholesterolemia. 2. Right foot neuropathy. 3. Dementia. PAST SURGICAL HISTORY: Significant for varicose vein surgery. CURRENT MEDICATIONS: 1. Lipitor 10 mg one tablet p.o. at bedtime. 2. Celebrex 200 mg one tablet p.o. daily. 3. Namenda 5 mg one tablet p.o. daily. 4. Lyrica 75 mg one tablet p.o. daily. ALLERGIES: To aspirin and acetaminophen. Social History: The patient is a resident of a [employer] [address]ment. The patient lives alone. The patient has a grown daughter, Emily Alfonso, who was present at bedside. The patient denies tobacco or alcohol use. Review Of Systems: Constitutional: The patient denies weight loss or weight gain. The patient denies fevers or chills. HEENT: The patient denies ear or throat pain. The patient denies headache. Cardiovascular: The patient denies palpitations or chest pain. Chest: The patient denies wheezes or shortness of breath. Abdomen: The patient denies nausea, vomiting, diarrhea, or constipation. The patient complains of abdominal pain as above. The patient complains of some anorexia. Neurologic: The patient denies seizures or generalized weakness. Genitourinary: The patient denies dysuria or increased frequency urination. Neuromuscular: The patient denies seizures or generalized weakness. PHYSICAL EXAMINATION: Vital Signs: Temperature 97.9, respirations 20, pulse 87, blood pressure 119/59. General: The patient is a well-developed, well-nourished, female, in no apparent distress. HEENT: Eyes, pupils are equal and responsive to light and accommodation. Extraocular movements are intact. NECK: Supple without lymphadenopathy. Chest: Lungs are clear to auscultation bilaterally without wheezes or rales. Cardiovascular: Regular rhythm and rate. S1 and S2 are normal without murmurs, rubs, or gallops. Abdomen: Soft, tender to palpation in the right lower quadrant with rebound or guarding noted. No evidence of hepatosplenomegaly. Neurologic: Cranial nerves II to XII are grossly intact without focal deficits. Motor strength is 5/5 bilaterally. Deep tendon reflexes are 2+ plantar. GENITAL/RECTAL: Refused. Laboratory Studies: WBC 7.2, hemoglobin 14.5, hematocrit 41.2, platelets 181,000. Sodium 141, potassium 4.3, chloride 103, CO2 24, BUN 18, creatinine 0.8, glucose 120, lipase 73, amylase 201. CT of the abdomen and pelvis revealed prominent appendix consistent with acute appendicitis. ASSESSMENT: This is a 76-year-old female. 1. Acute appendicitis. 2. Abdominal pain. 3. Elevated CEA. 4. Hypercholesterolemia. 5. Dementia. 6. Peripheral neuropathy. TREATMENT: 1. Abdominal pain/acute appendicitis. A General Surgery consultation has been obtained with Dr. Joshi. We will follow recommendation of Dr. Joshi. The patient will require an emergent appendectomy during this hospitalization. 2. Elevated CEA. The etiology of elevated CEA is unknown at this time. An Oncology consultation has been obtained with Dr. Dyole. 3. Hypercholesteremia. Continue Lipitor as above. 4. Dementia. Continue Namenda as above. 5. Peripheral neuropathy. Continue Lyrica as above. Yakov Toney M.D. DR: TOM JOB#: [id number] CC:
[2017-04-06] MEDS: Lyrica 75mg cap ORAL SCH ×2 (08:51→09:00)
[2017-04-06] MEDS: Memantine 5 MG TAB ORAL SCH (08:52)
[2017-04-06] MEDS: Pantoprazole Inj IVP SCH (08:52)
[2017-04-06] MEDS: Heparin 5000 units/ml inj SUBQ SCH (08:55)
--- NOTE | 2017-04-06 09:46 | Consultation ---
DATE OF CONSULTATION: 04/05/2017 HEMATOLOGY/ONCOLOGY CONSULTATION CONSULTING PHYSICIAN: Monster Doyle M.D. REQUESTING PHYSICIAN: Tee Ding M.D. REASON FOR CONSULTATION: Elevated CEA 199, etiology unknown. IDENTIFICATION DATA: Dear Dr. Ding: The patient is a pleasant 76-year-old female with past medical history which is significant for no significant major problems, has been taking medications as needed, referred due to generalized pain, has been having a history of dizziness. No nausea. No vomiting. No fever. No chills. The patient reported that she is having elevated CEA 199, etiology is unknown. Denies any other medical problems. Hematology service was consulted, this is her first time at [place]. She underwent emergent laparoscopic cholecystectomy as per surgical service, had a colonoscopy and upper endoscopy about 2 months ago at [facility]. PAST MEDICAL HISTORY: Elevated CEA, recurrent abdominal pain. MEDICATIONS: Pregabalin, , Lipitor, . ALLERGIES: Allergic to aspirin. Review Of Systems: Constitutional: No fevers, chills, or night sweats. Skin: No rashes, lumps, or itching. HEENT: No headache, hearing or vision changes. Breasts: No lumps, pain, or discharge. Pulmonary: No cough, sputum, or shortness of breath. Gastrointestinal: No nausea or vomiting. Genitourinary: No dysuria, frequency, or urgency. Musculoskeletal: No joint swelling, muscle pain, or trauma. PHYSICAL EXAMINATION: GENERAL: She is in no acute distress. Vital Signs: Temperature is 98 degrees Fahrenheit, pulse of 82, respiratory rate 12, blood pressure 132/62, and pulse oximetry 95% on room air. PULMONARY: Decreased breath sounds. CARDIOVASCULAR: Regular rate. No S3 or S4. ABDOMEN: Soft, nontender, and nondistended. EXTREMITIES: There is 1+ edema. Laboratory Data: BUN 18, creatinine 0.8. WBC 1.5, hemoglobin 12.4, hematocrit 37, and platelet count 194,000. INR of 1. Imaging: Abdomen and pelvis CT scan yesterday completed, with mild cardiomegaly, bilateral periovarian varicosities, . ASSESSMENT AND PLAN: 1. Elevated CEA, has had EGD as well as colonoscopy in the past, status post laparoscopic appendectomy at that time. 2. Leukocytosis likely related to appendicitis status post laparoscopic appendectomy. Continue diet as needed. 3. Abdominal pain secondary to appendicitis. Appreciate surgical and GI service evaluation. 4. Varicose vein in the leg, asymptomatic. Continue to monitor. I appreciate the consultation. Monster Doyle M.D. DR: LINDA JOB#: [id number] CC:
--- NOTE | 2017-04-06 10:57 | GI Progress Note ---
Assessment/Plan Problems: (1) Elevated CEA ICD Codes: R97.0 - Elevated carcinoembryonic antigen [CEA] SNOMED: 63646414, [id number] (2) Abdominal pain ICD Codes: R10.9 - Unspecified abdominal pain SNOMED: 68098338 Qualifiers: Qualified Codes: R10.84 - Generalized abdominal pain (3) Retrocecal appendicitis ICD Codes: K36 - Other appendicitis SNOMED: 36640993 Status: stable Status Narrative Discussed with Dr. Saravia. Assessment/Plan s/p EGD/colonoscopy x 2 months @ [facility] >> per patient, H. Pylori positive >> unable to tolerate abx treatment elevated CEA, 199 >> pt being followed by Dr. Hoang Doyle as outpatient s/p lap appy ok for DC per GI standpoint supportive care at this time fu surgical recs regular diet, tolerating pain mgmt ppi fu labs fu with outpatient GI provider for HP tx Subjective Gastrointestinal/Abdominal: Reports: no symptoms Subjective minimal abdominal pain Objective Last 24 Hour Vital Signs Date Time Temp Pulse Resp B/P (MAP) Pulse Ox O2 Delivery O2 Flow Rate FiO2 04/06/17 08:00 98.2 73 18 135/78 93 Room Air 04/06/17 04:00 97.7 54 20 131/69 95 Room Air 04/06/17 00:00 98.2 68 20 131/59 94 Room Air 04/05/17 20:00 97.7 65 20 146/73 93 Room Air 04/05/17 15:47 98.2 66 19 133/69 95 Room Air 04/05/17 12:00 97.5 63 20 132/69 94 Room Air Laboratory Tests Test 04/06/17 05:40 White Blood Count 7.1 K/UL (4.8-10.8) Red Blood Count 3.96 M/UL (4.20-5.40) L Hemoglobin 12.7 G/DL (12.0-16.0) Hematocrit 38.8 % (37.0-47.0) Mean Corpuscular Volume 98 FL (80-99) Mean Corpuscular Hemoglobin 32.1 PG (27.0-31.0) H Mean Corpuscular Hemoglobin Concent 32.7 G/DL (32.0-36.0) Red Cell Distribution Width 12.2 % (11.6-14.8) Platelet Count 176 K/UL (150-450) Mean Platelet Volume 9.4 FL (6.5-10.1) Neutrophils (%) (Auto) 50.9 % (45.0-75.0) Lymphocytes (%) (Auto) 40.4 % (20.0-45.0) Monocytes (%) (Auto) 6.9 % (1.0-10.0) Eosinophils (%) (Auto) 1.2 % (0.0-3.0) Basophils (%) (Auto) 0.7 % (0.0-2.0) Sodium Level 141 mEQ/L (135-145) Potassium Level 3.6 mEQ/L (3.4-4.9) Chloride Level 103 mEQ/L (98-107) Carbon Dioxide Level 29 mEQ/L (20-30) Anion Gap 9 (5-15) Blood Urea Nitrogen 12 mg/dL (7-23) Creatinine 0.8 mg/dL (0.5-0.9) Estimat Glomerular Filtration Rate mL/min (>60) Glucose Level 99 mg/dL (74-106) Calcium Level 9.1 mg/dL (8.6-10.2) Height (Feet): 5 Height (Inches): 2.00 Weight (Pounds): 127 General Appearance: no apparent distress, alert Cardiovascular: normal rate Respiratory/Chest: normal breath sounds, no respiratory distress Abdominal Exam: normal bowel sounds, non tender, soft, incision site - c/d/i Extremities: normal range of motion Radha Limon N.P. Apr 06, 2017 10:57
--- NOTE | 2017-04-06 11:34 | Internal Med Progress Note ---
Subjective Date of Service: Apr 06, 2017 Physician Name Yakov Harper Attending Physician Tee Ding MD Current Medications Medications (Trade) Dose Ordered Sig/Rhona Route PRN Reason Start Time Stop Time Status Last Admin Dose Admin Al Hydroxide/Mg Hydroxide (Mylanta II) 30 ml Q6H PRN ORAL dyspepsia 04/04/17 19:30 05/04/17 19:29 Atorvastatin Calcium (Lipitor) 10 mg BEDTIME ORAL 04/05/17 21:00 05/05/17 20:59 04/05/17 20:48 Dextrose (Dextrose 50%) STAT PRN IV Hypoglycemia 04/04/17 19:30 05/04/17 19:29 Diphenhydramine HCl (Benadryl) 25 mg Q6H PRN ORAL Itching/Pruritis 04/04/17 19:30 05/04/17 19:29 Heparin Sodium (Porcine) (Heparin 5000 units/ml) 5,000 units EVERY 12 HOURS SUBQ 04/05/17 21:00 05/05/17 20:59 04/06/17 08:55 Hydromorphone HCl (Dilaudid) 0.5 mg Q3H PRN IVP Pain Score 1-3 04/04/17 22:45 04/11/17 22:44 Hydromorphone HCl (Dilaudid) 1 mg Q3H PRN IVP pain score 4-6 04/04/17 22:45 04/11/17 22:44 Hydromorphone HCl (Dilaudid) 2 mg Q3H PRN IVP pain score 7-10 04/04/17 22:45 04/11/17 22:44 Memantine (Namenda) 2.5 mg Q12HR ORAL 04/05/17 21:00 05/05/17 20:59 04/06/17 08:52 Nitroglycerin (Ntg) 0.4 mg Q5M X 3 DOSES PRN SL Prn Chest Pain 04/04/17 19:30 05/04/17 19:29 Ondansetron HCl (Zofran) 4 mg Q6H PRN IVP Nausea & Vomiting 04/04/17 22:45 05/04/17 22:44 Pantoprazole (Protonix) 40 mg DAILY IVP 04/05/17 09:00 05/05/17 08:59 04/06/17 08:52 Polyethylene Glycol (Miralax) 17 gm HSPRN PRN ORAL Constipation 04/04/17 21:00 05/04/17 20:59 Pregabalin (Lyrica) 75 mg DAILY ORAL 04/06/17 09:00 05/06/17 08:59 Temazepam (Restoril) 15 mg HSPRN PRN ORAL Insomnia 04/04/17 21:00 04/11/17 20:59 04/05/17 23:10 Tramadol HCl (Ultram) 50 mg Q6H PRN ORAL Mild Pain (Pain Scale 1-3) 04/05/17 14:45 04/12/17 14:44 04/05/17 17:48 Allergies: Coded Allergies: ACETAMINOPHEN (Unverified Allergy, Intermediate, 04/05/17) ASPIRIN (Verified Allergy, Unknown, 04/04/17) ROS Limited/Unobtainable: No Constitutional: Reports: no symptoms HEENT: Reports: no symptoms Cardiovascular: Reports: no symptoms Respiratory: Reports: no symptoms Gastrointestinal/Abdominal: Reports: abdominal pain Genitourinary: Reports: no symptoms Neurologic/Psychiatric: Reports: no symptoms Subjective 76 YO F admitted with abdominal pain and elevated CEA. S/P lap appendectomy . Objective Last Vital Signs Date Time Temp Pulse Resp B/P (MAP) Pulse Ox O2 Delivery O2 Flow Rate FiO2 04/06/17 08:00 98.2 73 18 135/78 93 Room Air 04/04/17 23:20 3.0 General Appearance: WD/WN, no apparent distress, alert EENT: PERRL/EOMI, normal ENT inspection, TMs normal Neck: non-tender, normal alignment, supple Cardiovascular: normal peripheral pulses, normal rate, regular rhythm, no gallop/murmur, no JVD Respiratory/Chest: chest wall non-tender, lungs clear, normal breath sounds, no respiratory distress, no accessory muscle use Abdomen: no organomegaly, no mass, decreased bowel sounds, guarding, tender 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, no motor/sensory deficits Skin: normal pigmentation, warm/dry Laboratory Tests Test 04/06/17 05:40 White Blood Count 7.1 K/UL (4.8-10.8) Red Blood Count 3.96 M/UL (4.20-5.40) L Hemoglobin 12.7 G/DL (12.0-16.0) Hematocrit 38.8 % (37.0-47.0) Mean Corpuscular Volume 98 FL (80-99) Mean Corpuscular Hemoglobin 32.1 PG (27.0-31.0) H Mean Corpuscular Hemoglobin Concent 32.7 G/DL (32.0-36.0) Red Cell Distribution Width 12.2 % (11.6-14.8) Platelet Count 176 K/UL (150-450) Mean Platelet Volume 9.4 FL (6.5-10.1) Neutrophils (%) (Auto) 50.9 % (45.0-75.0) Lymphocytes (%) (Auto) 40.4 % (20.0-45.0) Monocytes (%) (Auto) 6.9 % (1.0-10.0) Eosinophils (%) (Auto) 1.2 % (0.0-3.0) Basophils (%) (Auto) 0.7 % (0.0-2.0) Sodium Level 141 mEQ/L (135-145) Potassium Level 3.6 mEQ/L (3.4-4.9) Chloride Level 103 mEQ/L (98-107) Carbon Dioxide Level 29 mEQ/L (20-30) Anion Gap 9 (5-15) Blood Urea Nitrogen 12 mg/dL (7-23) Creatinine 0.8 mg/dL (0.5-0.9) Estimat Glomerular Filtration Rate mL/min (>60) Glucose Level 99 mg/dL (74-106) Calcium Level 9.1 mg/dL (8.6-10.2) Microbiology Date/Time Source Procedure Growth Status 04/04/17 19:45 Blood Blood Culture - Preliminary NO GROWTH AFTER 24 HOURS Resulted 04/04/17 19:30 Blood Blood Culture - Preliminary NO GROWTH AFTER 24 HOURS Resulted Assessment/Plan Problem List: (1) Appendicitis, acute Assessment & Plan: S/P laparoscopic appendectomy 04/04/17 (2) Elevated carcinoembryonic antigen (CEA) (3) Hypercholesteremia Assessment & Plan: Cont lipitor (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
[2017-04-06 12:00] VITALS: BP 149/81
--- NOTE | 2017-04-06 12:57 | Pulmonology Progress Note ---
Assessment/Plan Problems: (1) Retrocecal appendicitis (2) Varicose vein of leg (3) Elevated CEA Assessment/Plan advance diet as tolerated surgery f/u dc planning CA19-9 is elevated, [employer] evaluation Subjective ROS Limited/Unobtainable: No Constitutional: Reports: no symptoms HEENT: Repors: no symptoms Respiratory: Reports: no symptoms Allergies: Coded Allergies: ACETAMINOPHEN (Unverified Allergy, Intermediate, 04/05/17) ASPIRIN (Verified Allergy, Unknown, 04/04/17) Objective Last 24 Hour Vital Signs Date Time Temp Pulse Resp B/P (MAP) Pulse Ox O2 Delivery O2 Flow Rate FiO2 04/06/17 08:00 98.2 73 18 135/78 93 Room Air 04/06/17 04:00 97.7 54 20 131/69 95 Room Air 04/06/17 00:00 98.2 68 20 131/59 94 Room Air 04/05/17 20:00 97.7 65 20 146/73 93 Room Air 04/05/17 15:47 98.2 66 19 133/69 95 Room Air General Appearance: WD/WN HEENT: normocephalic, atraumatic Respiratory/Chest: chest wall non-tender, lungs clear Breasts: no masses Cardiovascular: normal peripheral pulses Abdomen: normal bowel sounds, soft, non tender Genitourinary: normal external genitalia Extremities: no cyanosis, no clubbing Skin: no rash Microbiology Date/Time Source Procedure Growth Status 04/04/17 19:45 Blood Blood Culture - Preliminary NO GROWTH AFTER 24 HOURS Resulted 04/04/17 19:30 Blood Blood Culture - Preliminary NO GROWTH AFTER 24 HOURS Resulted Laboratory Tests 04/06/17 05:40: White Blood Count 7.1, Red Blood Count 3.96L, Hemoglobin 12.7, Hematocrit 38.8, Mean Corpuscular Volume 98, Mean Corpuscular Hemoglobin 32.1H, Mean Corpuscular Hemoglobin Concent 32.7, Red Cell Distribution Width 12.2, Platelet Count 176, Mean Platelet Volume 9.4, Neutrophils (%) (Auto) 50.9, Lymphocytes (%) (Auto) 40.4, Monocytes (%) (Auto) 6.9, Eosinophils (%) (Auto) 1.2, Basophils (%) (Auto ) 0.7, Sodium Level 141, Potassium Level 3.6, Chloride Level 103, Carbon Dioxide Level 29, Anion Gap 9, Blood Urea Nitrogen 12, Creatinine 0.8, Estimat Glomerular Filtration Rate , Glucose Level 99, Calcium Level 9.1 Current Medications Medications (Trade) Dose Ordered Sig/Rhona Route PRN Reason Start Time Stop Time Status Last Admin Dose Admin Al Hydroxide/Mg Hydroxide (Mylanta II) 30 ml Q6H PRN ORAL dyspepsia 04/04/17 19:30 05/04/17 19:29 Atorvastatin Calcium (Lipitor) 10 mg BEDTIME ORAL 04/05/17 21:00 05/05/17 20:59 04/05/17 20:48 Dextrose (Dextrose 50%) STAT PRN IV Hypoglycemia 04/04/17 19:30 05/04/17 19:29 Diphenhydramine HCl (Benadryl) 25 mg Q6H PRN ORAL Itching/Pruritis 04/04/17 19:30 05/04/17 19:29 Heparin Sodium (Porcine) (Heparin 5000 units/ml) 5,000 units EVERY 12 HOURS SUBQ 04/05/17 21:00 05/05/17 20:59 04/06/17 08:55 Hydromorphone HCl (Dilaudid) 0.5 mg Q3H PRN IVP Pain Score 1-3 04/04/17 22:45 04/11/17 22:44 Hydromorphone HCl (Dilaudid) 1 mg Q3H PRN IVP pain score 4-6 04/04/17 22:45 04/11/17 22:44 Hydromorphone HCl (Dilaudid) 2 mg Q3H PRN IVP pain score 7-10 04/04/17 22:45 04/11/17 22:44 Memantine (Namenda) 2.5 mg Q12HR ORAL 04/05/17 21:00 05/05/17 20:59 04/06/17 08:52 Nitroglycerin (Ntg) 0.4 mg Q5M X 3 DOSES PRN SL Prn Chest Pain 04/04/17 19:30 05/04/17 19:29 Ondansetron HCl (Zofran) 4 mg Q6H PRN IVP Nausea & Vomiting 04/04/17 22:45 05/04/17 22:44 Pantoprazole (Protonix) 40 mg DAILY IVP 04/05/17 09:00 05/05/17 08:59 04/06/17 08:52 Polyethylene Glycol (Miralax) 17 gm HSPRN PRN ORAL Constipation 04/04/17 21:00 05/04/17 20:59 Pregabalin (Lyrica) 75 mg DAILY ORAL 04/06/17 09:00 05/06/17 08:59 Temazepam (Restoril) 15 mg HSPRN PRN ORAL Insomnia 04/04/17 21:00 04/11/17 20:59 04/05/17 23:10 Tramadol HCl (Ultram) 50 mg Q6H PRN ORAL Mild Pain (Pain Scale 1-3) 04/05/17 14:45 04/12/17 14:44 04/05/17 17:48 POLA WILSON Apr 06, 2017 12:57
[2017-04-06] MEDS ORDERED: NS 275ml ONE (15:36)
[2017-04-06] MEDS ORDERED: Tubing IV Secondary IV ONE (15:36)
--- NOTE | 2017-04-06 15:49 | General Progress Note ---
Assessment/Plan Assessment/Plan ASSESSMENT AND PLAN: 1. Elevated CEA, has had EGD as well as colonoscopy in the past, status post laparoscopic appendectomy at that time. --> GI following --> MRI of abd/pelvis with contrast pending 2. Leukocytosis likely related to appendicitis status post laparoscopic appendectomy. Continue diet as needed. 3. Abdominal pain secondary to appendicitis. Appreciate surgical and GI service evaluation. 4. Varicose vein in the leg, asymptomatic. Continue to monitor. Subjective Constitutional: Reports: no symptoms HEENT: Reports: no symptoms Cardiovascular: Reports: no symptoms Respiratory: Reports: no symptoms Gastrointestinal/Abdominal: Reports: no symptoms Genitourinary: Reports: no symptoms Neurologic/Psychiatric: Reports: no symptoms Endocrine: Reports: no symptoms Hematologic/Lymphatic: Reports: no symptoms Allergies: Coded Allergies: ACETAMINOPHEN (Unverified Allergy, Intermediate, 04/05/17) ASPIRIN (Verified Allergy, Unknown, 04/04/17) Subjective feels better Objective Last 24 Hour Vital Signs Date Time Temp Pulse Resp B/P (MAP) Pulse Ox O2 Delivery O2 Flow Rate FiO2 04/06/17 12:00 96.8 71 18 149/81 96 Room Air 04/06/17 08:00 98.2 73 18 135/78 93 Room Air 04/06/17 04:00 97.7 54 20 131/69 95 Room Air 04/06/17 00:00 98.2 68 20 131/59 94 Room Air 04/05/17 20:00 97.7 65 20 146/73 93 Room Air Laboratory Tests 04/06/17 05:40: White Blood Count 7.1, Red Blood Count 3.96L, Hemoglobin 12.7, Hematocrit 38.8, Mean Corpuscular Volume 98, Mean Corpuscular Hemoglobin 32.1H, Mean Corpuscular Hemoglobin Concent 32.7, Red Cell Distribution Width 12.2, Platelet Count 176, Mean Platelet Volume 9.4, Neutrophils (%) (Auto) 50.9, Lymphocytes (%) (Auto) 40.4, Monocytes (%) (Auto) 6.9, Eosinophils (%) (Auto) 1.2, Basophils (%) (Auto ) 0.7, Sodium Level 141, Potassium Level 3.6, Chloride Level 103, Carbon Dioxide Level 29, Anion Gap 9, Blood Urea Nitrogen 12, Creatinine 0.8, Estimat Glomerular Filtration Rate , Glucose Level 99, Calcium Level 9.1 Height (Feet): 5 Height (Inches): 2.00 Weight (Pounds): 127 General Appearance: no apparent distress EENT: normal ENT inspection Neck: normal alignment Cardiovascular: normal peripheral pulses Respiratory/Chest: no accessory muscle use Abdomen: no organomegaly Edema: no edema noted Pedal (L), no edema noted Pedal (R) 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
[2017-04-06 16:00] VITALS: BP 143/76
--- NOTE | 2017-04-06 16:23 | Diagnostic Imaging Report ---
Indication: Abdominal pain, recent appendectomy Technique: Coronal and axial T1 fast spin echo, coronal and axial FSE IR, axial pre-and postcontrast T1 fast spin-echo fat-saturated images, coronal postcontrast T1 fat-saturated images, axial and sagittal T2 FRFSE, coronal T2 FRFSE fat-saturated images of the pelvis Comparison: Reference made to CT scan of the abdomen and pelvis dated 04/04/2017 Findings: A small amount of free fluid is seen within the pelvis. There is also fluid within the anterior bowel wall, predominantly to the right of midline, as well as some edema of the overlying skin. No definite localized fluid collections are seen in the region of recent appendectomy. However, evaluation for such is limited, given the inherent limited spatial resolution of MRI. The uterus and adnexal structures is are grossly unremarkable. The paraovarian varicosities described on recent CT are better demonstrated on that exam. A small amount of fluid is seen in the hip joints bilaterally. The bones are unremarkable. Impression: Small amount of free pelvic fluid, most likely related to recent appendectomy surgery. Edema in the anterior pelvic wall, as described, likewise also probably related to recent surgery. No definite worrisome fluid collections to suggest complication, post appendectomy. However, CT is more sensitive and specific for evaluation of such, and should be considered if there is high clinical suspicion. Note that paraovarian varicosities described on recent CT are visible but much better demonstrated on the prior CT exam
[2017-04-06] MEDS ORDERED: TRAMADOL HCL50 MG ORAL (18:51)
--- NOTE | 2017-04-08 07:42 | Diagnostic Imaging Report ---
Indication: 76-year-old female inpatient with abdominal pain, possible pancreatitis. History of renal cyst . Appendectomy 2 days ago Technique: Axial single shot fast spin echo breath hold, coronal single shot fast spin-echo breath hold, axial T2 FRFSE fat-saturated, 2-D thick slab MRCP, axial 2-D FIESTA fat-saturated, axial 3-D dual echo breath-hold, precontrast axial and postcontrast axial and coronal water weighted axial LAVA FLEX images of the abdomen Comparison: Reference made to CT abdomen pelvis dated 04/04/2017 Findings: There is some image degradation due to motion artifact. The gallbladder and bile ducts are unremarkable. No evidence of gallstones. No biliary ductal dilatation. No intraluminal ductal filling defects. The pancreas is unremarkable. There are is no evidence of peripancreatic edema or pancreatic swelling. The pancreas enhances with contrast normally. No mass demonstrated. The liver is unremarkable. The spleen is unremarkable except for small accessory splenule. The adrenals are unremarkable. The right kidney demonstrates a 3.2 cm unilocular simple cortical cyst. This is also described on the prior CT scan. The kidneys are otherwise unremarkable. The included segments of large and small bowel are unremarkable. There is trace bilateral pleural fluid The included lung bases are otherwise clear. The surgical bed for the appendectomy is only included on the imaging volume of the coronal SSFSE images, none given sequences, does not show any gross abnormality. Please refer to pelvic MRI for more detailed discussion of this area. Impression: Somewhat limited exam, due to image degradation from motion artifact No pancreatic abnormality to correlate with stated clinical history of pancreatitis No findings to correlate with stated clinical history of abdominal pain No evidence of gallstones or biliary ductal dilatation Incidental finding 3.2 cm unilocular right renal simple cortical cyst, also described on prior reports.
--- NOTE | 2017-04-08 07:51 | Discharge Summary ---
Discharge Summary Hospital Course Date of Admission Apr 04, 2017 at 16:53 Date of Discharge Apr 06, 2017 at 19:45 Admitting Diagnosis abdominal pain/ appy HPI Edi Conway is a 76 year old female who was admitted on Apr 04, 2017 at 16:53 for Abdominal Pain, Apendicitis Hospital Course [id number] Discharge Discharge Disposition Patient was discharged to Home (01) Discharge Diagnoses: Alejandrina Sauceda NP Apr 08, 2017 07:51
--- NOTE | 2017-04-08 16:15 | Discharge Summary 2 SIG ---
DATE OF ADMISSION: 04/04/2017 DATE OF DISCHARGE: 04/06/2017 CONSULTANTS: 1. Kalia Joshi M.D. 2. Gene Saravia M.D. 3. Jama Wallace M.D. Brief Hospital Course: The patient is a 76-year-old female who was evaluated by Dr. Doyle and was found to have elevated CEA and the patient was complaining of abdominal pain. She was referred to [place] ED for further evaluation. CAT scan of the abdomen done revealed a prominent appendix consistent with acute appendicitis. The patient was then admitted for elevated CEA and acute appendicitis and on 04/04/2017 underwent laparoscopic appendectomy by Dr. Kalia Joshi. Postoperatively, the patient was given pain management and was encouraged to ambulate out of bed. She had a bowel movement following day of surgery and diet was advanced as tolerated. Presurgery, she was given IV Zosyn. There was no evidence of perforation; IV antibiotic was discontinued. She was given proton pump inhibitors. MRI of the pelvis with and without contrast showed a small amount of free pelvic fluid related to recent surgery. There was no definite waves on fluid collections to suggest complication post appendectomy. The patient was eventually discharged home. FINAL DIAGNOSES: 1. Acute appendicitis, status post laparoscopic appendectomy. 2. Elevated CEA. DISCHARGE DISPOSITION: The patient was discharged home. DISCHARGE MEDICATIONS: Refer to medication list. Followup: Followup with surgery in one to two weeks and followup with PMD and Dr. Doyle for evaluation of elevated CEA. Yakov Toney M.D. I have been assigned to dictate discharge summary on this account and I was not involved in the patient's management. Alejandrina Sauceda N.P. DR: ARIK JOB#: [id number] CC: KENYON
== END 2017-04-06 19:45 | disposition home or self-care (01) | DRG 225 ==
LOC: EMR 16:34 → 4E 16:53 → EDBEDREQ 17:43
PROC: 0DTJ4ZZ Resection of Appendix, Percutaneous Endoscopic Approach (ICD-10-PCS; principal; 2017-04-04 21:00)
DX: K35.80 Unspecified acute appendicitis (principal); G62.9 Polyneuropathy, unspecified; F03.90 Unspecified dementia, unspecified severity, without behavioral disturbance, psychotic disturbance, mood disturbance, and anxiety; R97.0 Elevated carcinoembryonic antigen [CEA]; Z88.6 Allergy status to analgesic agent; E78.00 Pure hypercholesterolemia, unspecified; I83.90 Asymptomatic varicose veins of unspecified lower extremity
CPT/HCPCS: 36415; 72197; 74177; 74183; 80048; 80053; 81003; 82150; 82378; 83690; 84484; 85025; 85610; 85730; 86301; 86850; 86900; 86901; 87040; 93005; 94003; 94150; 99285; A9585; J2250; J2405